=== PATIENT | male | born 1945 | race Caucasian/White ===

== ENCOUNTER 2017-03-10 06:47 | Day surgery (SDC) | payer OTHER ==
[2017-03-10] MEDS ORDERED: diphenhydrAMINE 25 MG CAP PO ONE (06:49)
[2017-03-10] MEDS ORDERED: FAMOTIDINE 20 MG TAB PO ONE (06:49)
[2017-03-10] MEDS ORDERED: ASPIRIN EC 325 MG TAB PO ONE (06:49)
[2017-03-10] MEDS ORDERED: DIAZEPAM 5 MG TAB PO ONE (06:49)
[2017-03-10] MEDS ORDERED: NS 1,000 ML IV ONE (06:49)
--- NOTE | 2017-03-10 07:17 | CPEKG ---
Heart Rate: 63 RR Interval: 952 P-R Interval: 208 QRSD Interval: 98 QT Interval: 412 QTC Interval: 422 P [place]: 89 QRS [place]and: 80 T Wave [place]: 46 EKG Severity - NORMAL ECG - EKG Impression: SINUS RHYTHM EKG Impression: FIRST DEGREE AV BLOCK Electronically Signed By: Dago Marquez 10-Mar-2017 15:34:16
[2017-03-10 07:34] LABS: % IMMATURE GRANULYOCYTES 0.4 % (0.0-1.1); ABSOLUTE IMMATURE GRANULOCYTES 0.03 10^3/uL (0.00-0.10); ADD DIFF? NO; ADD MORPH? NO; ADD SCAN? NO; ATYPICAL LYMPHOCYTE FLAG 0 (0-99); FRAGMENT RBC FLAG 0 (0-99); HEMATOCRIT 45.8 % (40.0-51.0); HEMOGLOBIN 15.4 g/dL (13.7-17.5); LEFT SHIFT FLG 0 (0-99); LIPEMIA HEMOLYSIS FLAG 80 (0-99); MEAN CELL HEMOGLOBIN 30.1 pg (27.9-34.1); MEAN CELL HEMOGLOBIN CONCENTR. 33.6 g/dL (32.4-36.7); MEAN CELL VOLUME 89.5 fL (81.5-99.8); MEAN PLATELET VOLUME 10.6 fL (8.7-11.7); PLATELET CLUMPS FLAG 0 (0-99); PLATELET COUNT 174 10^3/uL (150-400); RED BLOOD CELL COUNT 5.12 10^6/uL (4.40-6.38); RED CELL DISTRIBUTION WIDTH 14.3 % (11.5-15.2)
[2017-03-10 07:45] LABS: INR 1.08 (0.83-1.16); PROTIME(PATIENT) 13.9 SEC (12.0-15.0)
[2017-03-10 07:49] LABS: ANION GAP 11 mEq/L (8-16); CALCIUM 9.3 mg/dL (8.5-10.4); CARBON DIOXIDE 23 mEq/l (22-31); CHLORIDE 105 mEq/L (97-110); CHOLESTEROL 130 mg/dL (140-220); CHOLESTEROL/HDL RATIO 2.24 RATIO (1.00-4.97); GLOMERULAR FILTRATION RATE > 60; GLUCOSE 81 mg/dL (70-100); HIGH DENSITY LIPOPROTEIN 58 mg/dL (40-65); LDL/HDL RATIO 1.09 RATIO (1.00-3.64); LOW DENSITY LIPOPROTEIN 63 mg/dL (80-100); MAGNESIUM 2.1 mg/dL (1.6-2.3); NON-HIGH DENSITY LIPOPROTEIN 72 mg/dL (90-129); POTASSIUM 4.3 mEq/L (3.5-5.2); SODIUM 139 mEq/L (134-144); TRIGLYCERIDE 47 mg/dL (40-150); VERY LOW DENSITY LIPOPROTEINS 9 mg/dL (8-25)
[2017-03-10] MEDS ORDERED: MIDAZOLAM 2 MG/2 ML VIAL ONE (08:12)
[2017-03-10] MEDS ORDERED: LIDOCAINE 1% 300 MG/30 ML SDV ONE (08:12)
[2017-03-10] MEDS ORDERED: fentaNYL 100 MCG/2 ML INJ ONE (08:12)
[2017-03-10] MEDS ORDERED: IOPAMIDOL (ISOVUE-370) 150 ML BTL IV ONE (08:13)
[2017-03-10] MEDS ORDERED: ATROPINE SULFATE 1 MG/10 ML SYR IVP PRN (09:33)
[2017-03-10] MEDS ORDERED: OXYCODONE/APAP 5/325 TAB PO PRN (09:33)
[2017-03-10] MEDS ORDERED: NITROGLYCERIN 0.4 MG BTL SL PRN (09:33)
[2017-03-10] MEDS ORDERED: HYDROCODONE/APAP 5/325 TAB PO PRN (09:33)
[2017-03-10] MEDS ORDERED: ONDANSETRON 4 MG/2 ML VIAL IVP PRN (09:33)
--- NOTE | 2017-03-10 10:21 | CPIP ---
[f rep st] INVASIVE CARDIAC PROCEDURE DATE OF PROCEDURE: 03/10/2017 PROCEDURE PERFORMED: Diagnostic left heart catheterization. INDICATION FOR PROCEDURE: High risk findings on an exercise nuclear stress test with large area of anterior and anterior septal ischemia, coupled with ECG changes and PVCs with exertion. The patient has a known history of prior anterior wall infarction, with PCI x2 to the LAD. PROCEDURE: After informed consent was obtained, the patient was brought to the cardiac catheterizat ion lab where he was prepped and draped in sterile fashion. Using 1% lidocaine, the right groin was anesthetized. Using the modified Seldinger technique, a 6-Syrian catheter was placed into the right common femoral artery without complications. A JL4 catheter was used to take images of the left coronary anatomy in multiple projections. The JL4 catheter was exchanged over a guidewire for a JR4 catheter. JR4 catheter was used to take i mages of the right coronary anatomy in multiple projections. JR4 catheter was exchanged over a guidewire for angled pigtail catheter. Angled pigtail catheter wa s used to cross the aortic valve. LVEDP was assessed, left ventriculogram was performed and aortic valve gradient pullback was assessed. Angled pigtail catheter was removed over a guidewire without complications. FINDINGS: 1. The left main is normal size and caliber, and bifurcates into left anterior descending and left circumflex coronary artery. There is no evidence of coronary disease within the left main. 2. Left anterior descending coronary artery demonstrates some mild luminal irregularities in the pr oximal segment of the vessel prior to the 2 LAD stents. There is no evidence of in-stent stenosis a nd the stents are widely patent to the mid LAD. The remainder of the LAD is free of coronary artery disease. 3. Circumflex vessel is a codominant vessel. The circumflex artery itself is free of coronary kalpesh ry disease. There is a second obtuse marginal branch sub 2 mm in diameter that has a 95% ostial sofie nosis. 4. Right coronary artery is a codominant vessel with a small PDA and PLV branch. There is no evide nce of coronary disease within the right coronary artery. HEMODYNAMICS: LVEF 60% to 65%. LVEDP 13 mmHg. Aortic valve gradient 10 mmHg. CONCLUSION: 1. Severe single branch vessel disease in the second obtuse marginal branch that is a sub 2 mm vess el. Would not recommend intervention to the obtuse marginal branch at this time. There is no evide nce of ischemia in the lateral wall. The patient has been asymptomatic. Will optimize medical kassandra gement. 2. Patent stents to the left anterior descending. 3. Left ventricular ejection fraction 60% to 65%. 4. Mild aortic gradient of 10 mmHg. PLAN: 1. The patient will be brought back to the [facility] for recovery. 2. Will work on optimizing medical therapy. 3. Will reinitiate Plavix in addition to his aspirin in the setting of branch vessel disease. /[id number]/[id number]
== END 2017-03-10 13:39 | disposition home or self-care (01) ==
LOC: FCATH 06:47
PROVIDERS: ATTEND Internal Medicine Cardiovascular Disease
PROC: B2151ZZ Fluoroscopy of Left Heart using Low Osmolar Contrast (ICD-10-PCS; principal; 2017-03-10)
PROC: B2111ZZ Fluoroscopy of Multiple Coronary Arteries using Low Osmolar Contrast (ICD-10-PCS; principal; 2017-03-10)
PROC: 4A023N7 Measurement of Cardiac Sampling and Pressure, Left Heart, Percutaneous Approach (ICD-10-PCS; principal; 2017-03-10)
DX: I25.10 Atherosclerotic heart disease of native coronary artery without angina pectoris (principal); I25.2 Old myocardial infarction; Z87.891 Personal history of nicotine dependence; Z95.5 Presence of coronary angioplasty implant and graft
CPT/HCPCS: C1760; J1644; J2250; J3010; Q9967